=== PATIENT | female | born 1995 | race Caucasian/White ===

== ENCOUNTER 2020-07-08 19:52 | Emergency (ER) | payer OTHER ==
[~2020-07-08] VITALS: Ht 165.1 cm; Wt 113.4 kg
[2020-07-08] MEDS ORDERED: AMOCLA875 PO (20:20)
== END 2020-07-08 20:38 | disposition home or self-care (01) ==
LOC: ER 19:52
DX: S61.052A Open bite of left thumb without damage to nail, initial encounter (principal); W55.01XA Bitten by cat, initial encounter
CPT/HCPCS: 99283; A9270

== ENCOUNTER 2020-12-01 10:26 | Emergency (ER) | payer OTHER ==
[~2020-12-01] VITALS: Ht 160 cm; Wt 103.4 kg
[~2020-12-01 10:26] MED LIST: AMOCLA875 PO
[2020-12-01] MEDS ORDERED: IBU800 M1 PO (10:39)
[2020-12-01 11:56] LABS: BASOPHILS ABSOLUTE AUTO 0.04 K/mm3 (0.00-0.23); BASOPHILS PERCENT AUTO 0 % (0-2); EOSINOPHILS ABSOLUTE AUTO 0.02 K/mm3 (0.00-0.68); EOSINOPHILS PERCENT AUTO 0 % (0-6); Hematocrit 38.6 % (33.0-51.0); Hemoglobin 12.7 g/dL (11.5-16.0); IMMATURE GRAN ABSOLUTE AUTO 0.03 K/mm3 (0.00-0.10); IMMATURE GRAN PERCENT AUTO 0 % (0-1); LYMPHOCYTES ABSOLUTE AUTO 2.21 K/mm3 (0.84-5.20); LYMPHOCYTES PERCENT AUTO 20 % (21-46); MONOCYTES ABSOLUTE AUTO 0.72 K/mm3 (0.16-1.47); MONOCYTES PERCENT AUTO 6 % (4-13); Mean Corpuscular HGB 26.6 pg (26.0-34.0); Mean Corpuscular HGB Conc 32.9 g/dL (31.5-36.5); Mean Corpuscular Volume 81 fL (80-100); Mean Platelet Volume 8.5 fL (9.1-12.4); NEUTROPHILS PERCENT AUTO 73 % (41-73); Platelet Count 437 K/mm3 (150-400); RDW Standard Deviation 41.6 fL (35.1-46.3); Red Blood Cell Count 4.77 M/mm3 (3.80-5.20); White Blood Cell Count 11.22 K/mm3 (4.00-11.30)
[2020-12-01 12:14] LABS: Alanine Aminotransfer (ALT/SGP 17 U/L (12-78); Albumin, Blood 3.6 g/dL (3.4-5.0); Albumin/Globulin Ratio 0.8 (0.8-1.8); Alk Phos 69 U/L (50-136); Anion Gap 6 mmol/L (6-16); Aspartate Aminotrans (AST/SGOT 9 U/L (12-37); Bilirubin, Total 0.2 mg/dL (0.1-1.0); Blood Urea Nitrogen 11 mg/dL (8-24); Bun/Creatinine Ratio 19.9 (12.0-20.0); CO2, Blood 24 mmol/L (21-32); Calcium, Blood 9.6 mg/dL (8.5-10.1); Chloride, Blood 108 mmol/L (98-108); Creatinine, Blood 0.55 mg/dL (0.40-1.00); Globulin, Blood 4.6 g/dL (2.2-4.0); Glomerular Filtration Rate >60 (60-); Glucose, Blood 98 mg/dL (70-99); Sodium, Blood 138 mmol/L (136-145); Total Protein, Blood 8.2 g/dL (6.4-8.2)
[2020-12-01] MEDS ORDERED: Norco 5-325 Ta1 EACH PO (12:26)
== END 2020-12-01 12:50 | disposition home or self-care (01) ==
LOC: ER 10:26
PROVIDERS: Physician Assistant
DX: M25.511 Pain in right shoulder (principal); Z88.8 Allergy status to other drugs, medicaments and biological substances; Z79.899 Other long term (current) drug therapy
CPT/HCPCS: 36415; 76705; 80053; 81000; 81025; 85025; 96374; 99284-25; J1885

== ENCOUNTER 2021-02-21 12:08 | Emergency (ER) | payer OTHER ==
[~2021-02-21] VITALS: Ht 160 cm; Wt 108.0 kg
[~2021-02-21 12:08] MED LIST changes: +IBU800 M1 PO; +Norco 5-325 Ta1 EACH PO
[2021-02-21] MEDS ORDERED: Robaxin750 MG PO (13:10)
[2021-02-21] MEDS ORDERED: GABA300 PO (13:10)
[2021-02-21] MEDS ORDERED: DIAZ5 PO (13:10)
== END 2021-02-21 13:15 | disposition home or self-care (01) ==
LOC: ER 12:08
DX: M54.12 Radiculopathy, cervical region (principal); Z88.8 Allergy status to other drugs, medicaments and biological substances; Z79.899 Other long term (current) drug therapy
CPT/HCPCS: 99283

== ENCOUNTER 2021-06-09 15:29 | Emergency (ER) | payer OTHER ==
[~2021-06-09] VITALS: Ht 157.5 cm; Wt 108.9 kg
[~2021-06-09 15:29] MED LIST changes: +DIAZ5 PO; +GABA300 PO; +Robaxin750 MG PO
== END 2021-06-09 18:03 | disposition home or self-care (01) ==
LOC: ER 15:29
DX: S06.0X9A Concussion with loss of consciousness of unspecified duration, initial encounter (principal); W19.XXXA Unspecified fall, initial encounter; Y92.9 Unspecified place or not applicable; Z88.8 Allergy status to other drugs, medicaments and biological substances
CPT/HCPCS: 70450

== ENCOUNTER → 2024-04-16 | Outpatient (CLI) | payer BC, OTHER ==
[2024-04-23 09:57] LABS: C. TRACHOMATIS BY TMA,THINPREP Negative (Negative); N. GONORRHOEAE BY TMA,THINPREP Negative (Negative); SPECIMEN SOURCE Cervical
== END | disposition home or self-care (01) ==
LOC: LAB 16:58 → LAB SHORT 16:58
PROVIDERS: Advanced Practice Midwife
DX: Z11.3 Encounter for screening for infections with a predominantly sexual mode of transmission (principal); Z01.419 Encounter for gynecological examination (general) (routine) without abnormal findings
CPT/HCPCS: 87491; 87591; G0123